=== PATIENT | male | born 1970 | race Two or more races ===

== ENCOUNTER 2016-10-18 11:17 | Day surgery (SDC) | payer OTHER ==
[2016-10-15 13:38] VITALS: BMI 25.8
[2016-10-18] MEDS ORDERED: BUPIVACAINE HCL/PF 0.5% (5MG/ML) 10 ML VIAL ONE (12:14)
[2016-10-18] MEDS ORDERED: MIDAZOLAM HCL 2 MG/2 ML SINGLE DOSE VIAL ONE (13:25)
[2016-10-18] MEDS ORDERED: PROPOFOL 20 ML ONE (13:32)
[2016-10-18] MEDS ORDERED: ROCURONIUM BROMIDE 50 MG/5 ML VIAL ONE (13:33)
[2016-10-18] MEDS ORDERED: ceFAZolin SODIUM 1 GM VIAL IVPB ONE (13:39)
[2016-10-18] MEDS ORDERED: ceFAZolin SODIUM 1 GM VIAL ONE (13:50)
[2016-10-18] MEDS ORDERED: LIDOCAINE HCL 1%, 10 MG/ML (50 mL VIAL) IJ ONE (13:51)
[2016-10-18] MEDS ORDERED: BUPIVACAINE HCL/PF 0.5% (5MG/ML) 10 ML VIAL IJ ONE (13:51)
[2016-10-18] MEDS ORDERED: NEOSTIGMINE METHYLSULFATE 0.5 MG/ML - 10 ML MDV ONE (14:26)
[2016-10-18] MEDS ORDERED: DEXAMETHASONE SOD PHOSPHATE 4 MG/1 ML VIAL ONE (14:26)
[2016-10-18] MEDS ORDERED: GLYCOPYRROLATE 0.2 MG/1 ML VIAL ONE (14:26)
[2016-10-18] MEDS ORDERED: KETOROLAC TROMETHAMINE 30 MG/1 ML VIAL ONE (14:26)
--- NOTE | 2016-10-18 14:55 | OP ---
Operative Note - Note: Operative Date: 10/18/16 Pre-Operative Diagnosis: right inguinal hernia Operation: repair right inguinal hernia with mesh Findings: indirect RIH w/weak floor Surgeon: Lucio Fermin Food Services Director: Luan Cisneros Anesthesia: General Specimens Removed: hernia sac Estimated Blood Loss (mls): 5 Operative Report Dictated: Yes
[2016-10-18] MEDS ORDERED: ONDANSETRON 4 MG/2 ML VIAL IVPUSH PRN (14:57)
[2016-10-18] MEDS ORDERED: oxyCODONE HCL 5 MG TABLET PO PRN (14:57)
[2016-10-18] MEDS ORDERED: PROMETHAZINE HCL 25 MG/1 ML VIAL IVPUSH PRN (14:57)
[2016-10-18] MEDS ORDERED: LACTATED RINGERS SOLUTION 1,000 ML IV SCH (15:00)
[2016-10-18 16:46] VITALS: TEMP 98.9
[2016-10-18 18:52] VITALS: BP 126/68; PULSE 99
--- NOTE | 2016-10-19 12:02 | OP ---
DATE OF OPERATION: 10/18/2016 PREOPERATIVE DIAGNOSIS: Right inguinal hernia. POSTOPERATIVE DIAGNOSIS: Indirect right inguinal hernia with weak floor. PROCEDURE: Repair, right inguinal hernia, with mesh. SURGEON: Lucio Fermin MD REVENUE COLLECTOR: Luan Cisneros MD ANESTHESIA: General. OPERATIVE FINDINGS: There was an indirect right inguinal hernia with a weak floor. The rest of the findings were unremarkable. PROCEDURE: The patient was placed on the operating table in supine position. After induction of general anesthesia, the patient's right groin was prepped with ChloraPrep and draped in sterile fashion. The time-out was taken and the transverse incision mapped out in the right groin crease. The area was infiltrated with 1% Xylocaine and 0.5% Marcaine in equal concentration. Incision was made with a scalpel and taken down through skin and subcutaneous tissue and Jeanette's fascia. The external oblique fascia was opened proximally and distally in the direction of its fibers. Cord structures and nerve were elevated to the level of the pubic tubercle and a Jovon drain placed around them for retraction and identification purposes. Dissection was begun in the cord, where the sac was identified, and using blunt dissection, it was traced all the way up to the internal ring. The sac was noted to be empty and then a high ligation was carried out with 2-0 Vicryl suture. The redundant sac was excised and sent for pathological examination. Next a piece of Parietex mesh was fashioned into the defect and anchored to the pubic tubercle, shelving edge, and conjoined tendon respectively with interrupted 2-0 Prolene. A keyhole was created through the cord structures and the tails of the mesh brought above the level of the internal ring and anchored there with interrupted 2-0 Prolene. Hemostasis was checked for and noted to be good and then the cord structures and nerve were returned to their normal anatomic position. Irrigation was carried out with normal saline. Hemostasis was verified again and then the external oblique fascia closed over the cord structures using continuous 2-0 Vicryl, recreating the external ring. Jeanette's fascia was reapproximated with interrupted 2-0 Vicryl, the deep dermis with interrupted 3-0 Vicryl, and the skin edges with 4-0 Biosyn in subcuticular continuous fashion. Steri-Strips, fluffs, and dry sterile dressings were placed and the procedure terminated at this point and the patient aroused from general anesthesia and transferred to the post-anesthesia care unit in stable condition, awake and alert. Estimated blood loss minimal. Drains: None. Specimen: Hernia sac to Pathology. I, Lucio Fermin, was physically present in the operating room from the time the patient was placed on the operating table until he was transferred to the post-anesthesia care unit in my accompaniment. Lucio Fermin MD [id number]
--- NOTE | 2016-10-20 14:20 | PATH ---
Surgical Pathology Report Patient Name: JULI PAL [facility]. Rec. #: [id number] /Age/Gender: 1970 (Age: 46) / M Account: [id number] Location: [facility] Taken: 10/18/2016 Received: 10/19/2016 Reported: 10/20/2016 Physicians: Lucio Fermin MD Specimen(s) Received RIGHT INGUINAL HERNIA SAC Clinical History Right inguinal hernia Final Diagnosis HERNIA SAC, RIGHT INGUINAL HERNIA, HERNIA REPAIR: BENIGN FOCALLY MESOTHELIUM LINED FIBROMEMBRANOUS AND FIBROFATTY TISSUE CONSISTENT WITH HERNIA SAC. Electronically Signed Pancho Hernandez M.D. Gross Description Received in formalin labeled "right inguinal hernia sac" is a 3.6 x 1.4 x 0.8 cm portion of crane-acuna fibromembranous tissue, consistent with a hernia sac. [employer] sections are submitted in one cassette. /10/19/201610/19/2016
== END 2016-10-18 18:15 | disposition home or self-care (01) ==
LOC: JASU-SURG 11:17
PROVIDERS: ATTEND Surgery
PROC: 0YU50JZ Supplement Right Inguinal Region with Synthetic Substitute, Open Approach (ICD-10-PCS; principal; 2016-10-18 13:00)
DX: K40.90 Unilateral inguinal hernia, without obstruction or gangrene, not specified as recurrent (principal)
CPT/HCPCS: 86850; 86900; 86901; 88302-TC; 94760

== ENCOUNTER 2021-12-10 04:19 | Day surgery (SDC) | payer OTHER ==
[2021-11-27 17:54] VITALS: BMI 24.3
[2021-12-10] MEDS ORDERED: FENTANYL CITRATE/PF 50 MCG/ML VIAL ONE ×5 (08:11→10:04)
[2021-12-10] MEDS ORDERED: ROCURONIUM BROMIDE 50 MG/5 ML SYRINGE ONE (08:11)
[2021-12-10] MEDS ORDERED: PROPOFOL 20 ML ONE (08:11)
[2021-12-10] MEDS ORDERED: MIDAZOLAM HCL 2 MG/2 ML SINGLE DOSE VIAL ONE (08:12)
[2021-12-10] MEDS ORDERED: LIDOCAINE HCL 1%, 10 MG/ML (20ML VIAL) ONE (08:25)
[2021-12-10] MEDS ORDERED: BENZOIN/ALOE VERA/STORAX/TOLU 58 ML BOTTLE ONE (08:25)
[2021-12-10] MEDS ORDERED: DEXAMETHASONE SOD PHOSPHATE 4 MG/1 ML VIAL ONE (08:45)
[2021-12-10] MEDS ORDERED: ceFAZolin SODIUM 1 GM VIAL ONE (08:45)
[2021-12-10] MEDS ORDERED: ceFAZolin SODIUM 1 GM VIAL IVPB ONE (08:46)
[2021-12-10] MEDS ORDERED: BUPIVACAINE HCL/PF 0.5% (5MG/ML) 10 ML VIAL IJ ONE ×2 (08:55)
[2021-12-10] MEDS ORDERED: LIDOCAINE HCL 1%, 10 MG/ML (20ML VIAL) NR ONE ×2 (08:55)
[2021-12-10] MEDS ORDERED: NEOSTIGMINE METHYLSULFATE 0.5 MG/ML - 10 ML MDV ONE (09:44)
[2021-12-10] MEDS ORDERED: GLYCOPYRROLATE 0.2 MG/1 ML VIAL ONE (09:44)
[2021-12-10] MEDS ORDERED: oxyCODONE HCL 5 MG TABLET PO PRN (10:14)
[2021-12-10] MEDS ORDERED: ONDANSETRON 4 MG/2 ML VIAL IVPUSH PRN (10:14)
[2021-12-10] MEDS ORDERED: LACTATED RINGERS SOLUTION 1,000 ML IV SCH (10:15)
[2021-12-10 14:11] VITALS: TEMP 98.2
[2021-12-10 14:15] VITALS: BP 110/60; PULSE 89
== END 2021-12-10 13:15 | disposition home or self-care (01) ==
LOC: JASU-SURG 04:19
PROVIDERS: ATTEND Surgery
PROC: 0YU60JZ Supplement Left Inguinal Region with Synthetic Substitute, Open Approach (ICD-10-PCS; principal; 2021-12-10 08:30)
DX: K40.90 Unilateral inguinal hernia, without obstruction or gangrene, not specified as recurrent (principal)
CPT/HCPCS: 88302-TC; 88304-TC; 94760